=== PATIENT | male | born 1955 | race Caucasian/White ===

== ENCOUNTER 2017-04-21 07:52 | Outpatient (CLI) | payer OTHER ==
[2013-09-18 13:21] VITALS: BP 102/66
[2017-04-21 09:00] LABS: eGFR (African) > 60; eGFR (Non-African) > 60
== END 2017-04-21 07:53 ==
LOC: LAB 07:52
PROVIDERS: ATTEND Family Medicine
DX: Z12.5 Encounter for screening for malignant neoplasm of prostate (principal); E78.5 Hyperlipidemia, unspecified
CPT/HCPCS: 36415; 80053; 80061; 84153

== ENCOUNTER 2017-09-18 10:19 | Day surgery (SDC) | payer OTHER ==
[2013-09-18 13:21] VITALS: BP 102/66
== END 2017-09-18 10:20 ==
LOC: OPSURG 10:19
PROVIDERS: ATTEND Internal Medicine Gastroenterology
DX: I49.8 Other specified cardiac arrhythmias (principal)

== ENCOUNTER 2017-09-25 07:35 | Outpatient (CLI) | payer OTHER ==
[2013-09-18 13:21] VITALS: BP 102/66
[2017-09-25 08:04] LABS: BASOPHILS % 1.7 (0.0-1.5); EOSINOPHILS % 6.4 % (0.0-6.8); MEAN CORPUSCULAR HEMOGLOBIN 31.7 pg (28.0-34.0); MEAN CORPUSCULAR VOLUME 86.6 fl (80.0-100.0); MONOCYTES % 6.6 % (0.0-11.0); NEUTROPHILS # 3.8 # k/uL (1.4-7.7)
--- NOTE | 2017-09-25 12:44 | Diagnostic Imaging Report ---
JOVANY FISCHER [facility] [address] [facility].[address] [id number] Report Submission Date: Sep 25, 2017 8:30:20 AM DEVELOPMENT MECHANIC Patient Study Name: NIMESH DORANTES Date: Sep 25, 2017 7:53:41 AM DEVELOPMENT MECHANIC Modality Type: CR Gender: M Description: CHEST : 51 Institution: [facility] Physician: JOVANY FISCHER Examination: PA and lateral chest. History: Evaluate lung haro. Comparison exam: None provided. Findings: PA lateral chest demonstrate a normal cardiac and mediastinal silhouette. No focal infiltrate. No blunting of the costophrenic margins. Osseous structures are appropriate for age. Impression: No acute pulmonary process. Electronically signed on Sep 25, 2017 8:30:20 AM DEVELOPMENT MECHANIC by: Peter RICKS
[2017-09-25 18:11] LABS: T3-UPTAKE 34.6 % (25.4-41.2)
== END 2017-09-25 07:36 ==
LOC: LAB 07:35
PROVIDERS: ATTEND Family Medicine
DX: I48.91 Unspecified atrial fibrillation (principal)
CPT/HCPCS: 36415; 71020; 83880; 84436; 84479; 85025; 85379

== ENCOUNTER 2017-10-10 10:44 | Outpatient (CLI) | payer OTHER ==
[2013-09-18 13:21] VITALS: BP 102/66
== END 2017-10-10 10:45 ==
LOC: CARD 10:44
PROVIDERS: ATTEND Internal Medicine Cardiovascular Disease
DX: I48.91 Unspecified atrial fibrillation (principal); I10 Essential (primary) hypertension
CPT/HCPCS: 99213

== ENCOUNTER 2017-10-24 11:06 | Outpatient (CLI) | payer OTHER ==
[2013-09-18 13:21] VITALS: BP 102/66
== END 2017-10-24 11:07 ==
LOC: CARD 11:06
PROVIDERS: ATTEND Internal Medicine Cardiovascular Disease
DX: I48.91 Unspecified atrial fibrillation (principal)

== ENCOUNTER 2018-02-06 10:36 | Outpatient (CLI) | payer MEDICARE, OTHER ==
[2013-09-18 13:21] VITALS: BP 102/66
== END 2018-02-06 10:38 ==
LOC: CARD 10:36
PROVIDERS: ATTEND Internal Medicine Cardiovascular Disease
DX: I48.91 Unspecified atrial fibrillation (principal); I10 Essential (primary) hypertension; E78.5 Hyperlipidemia, unspecified
CPT/HCPCS: 93005; G0463

== ENCOUNTER 2018-08-06 07:04 | Outpatient (CLI) | payer MEDICARE, OTHER ==
[2013-09-18 13:21] VITALS: BP 102/66
[2018-08-06 07:54] LABS: eGFR (Non-African) > 60
== END 2018-08-06 07:14 ==
LOC: LAB 07:04
PROVIDERS: ATTEND Family Medicine
DX: I48.91 Unspecified atrial fibrillation (principal); R73.9 Hyperglycemia, unspecified
CPT/HCPCS: 36415; 80053; 80061; 83036